=== PATIENT | male | born 1945 | race Caucasian/White ===

== ENCOUNTER 2017-09-18 18:18 | Emergency (ER) | payer OTHER, BC ==
--- NOTE | 2017-09-18 19:06 | EDPHY ---
H & P Time Seen by Provider: 09/18/17 18:46 HPI/ROS: Chief complaint. Abdominal pain HPI. 72-year-old male visiting from [facility]. He arrived in from [facility] today. He has had left lower quadrant abdominal pain coming and going for the last 4 days. Yesterday he was playing volleyball with really no symptoms. Then this morning left mid to lower quadrant pain that hurts with walking and sitting up and pushing on. He had a kidney stone 6 months ago shown on colonoscopy. He was also told he had extensive diverticulosis during that colonoscopy. He has had no fever nausea vomiting or diarrhea. Hard stool today. No urinary symptoms. No chest discomfort or shortness of breath. Umbilical hernia surgery when he was 3 years old. Recent colonoscopy showed diverticulosis. ROS Constitutional. no fever/chills, no weakness Eyes. no problems with vision ENT. no sore throat, no nasal drainage Cardiovascular. no chest pain Respiratory. no shortness of breath, no cough Abdominal. Left side abdominal pain . no problems urinating MS. no calf pain/swelling, no neck/back pain, no joint pain Skin. no rash Lymph. no swollen glands Neuro. no headache, no dizziness, no difficulty walking or with speech Past Medical/Surgical History: Diverticulosis, kidney stone Social History: , nonsmoker, no alcohol Smoking Status: Never smoked Physical Exam: General Appearance: Alert well-developed male moderate distress vital signs are stable Eyes: Pupils equal and round no pallor or injection. ENT, Mouth: Mucous membranes are moist. Respiratory: There are no retractions, lungs are clear to auscultation. Cardiovascular: Regular rate and rhythm. Gastrointestinal: Abdomen is soft and tender to palpation left mid abdomen. Normal bowel sounds. No masses. No right-sided tenderness Neurological: Awake and alert, sensory and motor exams grossly normal. Skin: Warm and dry, no rashes. Musculoskeletal: Neck is supple nontender. Extremities symmetrical, full range of motion. Psychiatric: Patient is oriented X 3, there is no agitation. Constitutional: Initial Vital Signs Temperature (C) 36.9 C 09/18/17 18:22 Heart Rate 76 09/18/17 18:22 Respiratory Rate 16 09/18/17 18:22 Blood Pressure 117/87 H 09/18/17 18:22 O2 Sat (%) 94 09/18/17 18:22 O2 Delivery Mode Room Air Allergies/Adverse Reactions: horse dander Allergy (Verified 09/18/17 18:25) iodine Allergy (Verified 09/18/17 18:25) Penicillins Allergy (Verified 09/18/17 18:25) tetanus and diphtheria toxoids Allergy (Verified 09/18/17 18:25) tetracycline Allergy (Verified 09/18/17 18:25) Home Medications: Medication Instructions Recorded Flomax 09/18/17 levOFLOXACIN [levAQUIN (*)] 750 mg PO DAILY #10 tab 09/18/17 metroNIDAZOLE [Flagyl 500 mg (*)] 500 mg PO QID #40 tab 09/18/17 Medical Decision Making - Diagnostics Imaging Results: Imaging Impressions Abdomen CT 09/18/17 19:13 Impression: 1. Sigmoid diverticulitis without abscess (The patient has reportedly undergone recent colonoscopy with no evidence of malignancy). 2. Prostatic hypertrophy. 3. 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 Coronary artery atherosclerosis. 5. Additional findings as above. Findings discussed with JENNIFER WATKINS 09/18/2017 at 20:32. CT abdomen pelvis with IV contrast shows sigmoid diverticulitis. Reviewed by me and discussed with Dr. Shi Procedures: IV normal saline Patient has concern for possible allergic reaction. He is pretreated with Benadryl and Solu-Medrol ED Course/Re-evaluation: Re-evaluation 8:35 p.m. Patient is stable. The patient, his , and I discussed imaging and lab results. We discussed treatment plan including criteria for return importance of follow-up and further evaluation. They expressed understanding and agreement . He had no reaction from IV contrast Differential Diagnosis: I considered urinary tract infection, pyelonephritis, kidney stone, diverticulitis - Data Points Laboratory Results: Laboratory Results 09/18/17 18:15 09/18/17 18:15 09/18/17 09/18/17 09/18/17 19:20 18:15 18:15 WBC 9.96 10^3/uL H 10^3/uL (3.80-9.50) RBC 4.60 10^6/uL 10^6/uL (4.40-6.38) Hgb 14.1 g/dL g/dL (13.7-17.5) Hct 41.4 % % (40.0-51.0) MCV 90.0 fL fL (81.5-99.8) MCH 30.7 pg pg (27.9-34.1) MCHC 34.1 g/dL g/dL (32.4-36.7) RDW 13.8 % % (11.5-15.2) Plt Count 135 10^3/uL L 10^3/uL (150-400) MPV 12.3 fL H fL (8.7-11.7) Neut % (Auto) 70.6 % % (39.3-74.2) Lymph % (Auto) 17.5 % % (15.0-45.0) [place] % (Auto) 11.0 % % (4.5-13.0) Eos % (Auto) 0.2 % L % (0.6-7.6) Baso % (Auto) 0.4 % % (0.3-1.7) Nucleat RBC Rel Count 0.0 % % (0.0-0.2) Absolute Neuts (auto) 7.03 10^3/uL H 10^3/uL (1.70-6.50) Absolute Lymphs (auto) 1.74 10^3/uL 10^3/uL (1.00-3.00) Absolute Monos (auto) 1.10 10^3/uL H 10^3/uL (0.30-0.80) Absolute Eos (auto) 0.02 10^3/uL L 10^3/uL (0.03-0.40) Absolute Basos (auto) 0.04 10^3/uL 10^3/uL (0.02-0.10) Absolute Nucleated RBC 0.00 10^3/uL 10^3/uL (0-0.01) Immature Gran % 0.3 % % (0.0-1.1) Immature Gran # 0.03 10^3/uL 10^3/uL (0.00-0.10) Sodium 140 mEq/L mEq/L (135-145) Potassium 4.0 mEq/L mEq/L (3.3-5.0) Chloride 104 mEq/L mEq/L (97-110) Carbon Dioxide 24 mEq/l mEq/l (22-31) Anion Gap 12 mEq/L mEq/L (8-16) BUN 22 mg/dL mg/dL (7-23) Creatinine 0.9 mg/dL mg/dL (0.7-1.3) Estimated GFR > 60 Glucose 113 mg/dL H mg/dL (70-100) Calcium 8.8 mg/dL mg/dL (8.5-10.4) Urine Color YELLOW Urine Appearance HAZY Urine pH 5.0 (5.0-7.5) Ur Specific [place] 1.012 (1.002-1.030) Urine Protein NEGATIVE (NEGATIVE) Urine Ketones NEGATIVE (NEGATIVE) Urine Blood NEGATIVE (NEGATIVE) Urine Nitrate NEGATIVE (NEGATIVE) Urine Bilirubin NEGATIVE (NEGATIVE) Urine Urobilinogen NEGATIVE EU EU (0.2-1.0) Ur Leukocyte Esterase NEGATIVE (NEGATIVE) Urine RBC 5-10 /hpf H /hpf (0-3) Urine WBC 1-3 /hpf /hpf (0-3) Ur Epithelial Cells NONE SEEN /lpf /lpf (NONE-1+) Urine Mucus TRACE /lpf /lpf (NONE-1+) Urine Glucose NEGATIVE (NEGATIVE) Medications Given: Discontinued Medications Diphenhydramine HCl (Benadryl Injection) 25 mg IVP EDNOW ONE Stop: 09/18/17 19:26 Last Admin: 09/18/17 19:38 Dose: 25 mg Sodium Chloride (Ns) 1,000 mls @ 0 mls/hr IV EDNOW ONE; Wide Open PRN Reason: Protocol Stop: 09/18/17 19:14 Last Admin: 09/18/17 19:23 Dose: 1,000 mls Methylprednisolone Sodium Succinate (Solu-Medrol) 125 mg IVP EDNOW ONE Stop: 09/18/17 19:26 Last Admin: 09/18/17 19:43 Dose: 125 mg Departure - Departure Disposition: Home, Routine, Self-Care Clinical Impression: Diverticulitis large intestine Qualifiers: Diverticulitis bleeding: without bleeding Diverticulitis complication: without perforation or abscess Qualified Code(s): K57.32 - Diverticulitis of large intestine without perforation or abscess without bleeding Condition: Good Instructions: Diverticulitis (ED), Diverticulitis Diet (ED) Additional Instructions: Flagyl as antibiotic. Levaquin is antibiotic. Diverticulitis diet. Stay hydrated. Return for worsening symptoms including fever, vomiting, worsening pain. Recheck by your regular physician on return to [facility] Referrals: Patient,NotPresent [Unknown] - As per Instructions Prescriptions: levOFLOXACIN [levAQUIN (*)] 750 mg PO DAILY #10 tab metroNIDAZOLE [Flagyl 500 mg (*)] 500 mg PO QID #40 tab
[2017-09-18] MEDS ORDERED: NS 1,000 ML IV ONE (19:13)
[2017-09-18 19:25] LABS: PLATELET COUNT 135 10^3/uL (150-400)
[2017-09-18] MEDS ORDERED: methylPREDNISolone SOD SUCC 125 MG/2 ML VIAL IVP ONE (19:25)
[2017-09-18] MEDS ORDERED: IOPAMIDOL (ISOVUE-300) 100 ML BTL ONE (20:00)
[2017-09-18 20:20] VITALS: BP 128/72
[2017-09-18] MEDS ORDERED: metroNIDAZOLE 500 MG TAB PO ONE ×2 (20:38→22:48)
== END 2017-09-18 21:05 | disposition home or self-care (01) ==
DX: K57.32 Diverticulitis of large intestine without perforation or abscess without bleeding (principal); E86.9 Volume depletion, unspecified
CPT/HCPCS: 74177; 96374; 96375; 99285; J1200; J2930; Q9967